=== PATIENT | male | born 1965 | race Caucasian/White ===

== ENCOUNTER 2016-05-09 09:06 | Day surgery (SDC) | payer OTHER ==
[2016-05-05 12:22] VITALS: BMI 25.5
[~2016-05-09 09:06] MED LIST: LACTATED RINGERS 1,000 ML IV SCH
[2016-05-09 09:26] VITALS: RESP 16; TEMP 97
[2016-05-09] MEDS ORDERED: PROPOFOL 10 MG/ML 20 ML VIAL IV ONE (09:38)
[2016-05-09] MEDS ORDERED: LIDOCAINE 1% INJ 10MG/ML (20 ML MDV) ONE (09:38)
--- NOTE | 2016-05-09 10:09 | P.PCN ---
Date of Procedure: 05/09/16 Procedure(s) Performed: Procedure: Total colonoscopy. Preoperative diagnosis: Screening for neoplasia. Postoperative diagnosis: Sigmoid diverticulosis with no evidence of acute diverticulitis, strictures, polyps or cancer. Preparation: HalfLytely prep. Sedation: Was provided by anesthesia. Brief clinical history: The patient is a 50-year-old male who is referred for this evaluation for screening for neoplasia age being his risk factor. He has no abdominal complaints, bleeding or anemia. No family history of colon cancer. This would be his first colonoscopy. The patient is on Prograf following his kidney transplant several years ago. Procedure: With the patient on her left lateral decubitus position and after informed consent and adequate sedation, the perianal area was inspected and it did not show any fissures or fistulas. There were no masses felt on digital rectal examination. The Olympus CFQ 160L video colonoscope was then inserted in the rectum in the usual fashion and advanced to the cecum. There were a few diverticular orifices seen scattered in the distal sigmoid but there was no evidence of acute diverticulitis or strictures. No polyps or tumors were seen. I retroflexed endoscope in the rectum before the endoscope was withdrawn. The patient tolerated the procedure well. Plan: The patient was reassured. Discussed dietary measures. He will follow up with you as planned and I recommended repeat exam in around 10 years.
[2016-05-09 10:21] VITALS: BP 132/87; PULSE 63
== END 2016-05-09 10:36 | disposition home or self-care (01) ==
LOC: ORWHC2ENDO 09:06
DX: Z12.11 Encounter for screening for malignant neoplasm of colon (principal); K57.30 Diverticulosis of large intestine without perforation or abscess without bleeding; K21.9 Gastro-esophageal reflux disease without esophagitis; I10 Essential (primary) hypertension; Z79.82 Long term (current) use of aspirin; Z79.899 Other long term (current) drug therapy
CPT/HCPCS: J2001; J2704; G0121; 99153

== ENCOUNTER → 2016-10-26 | Outpatient (CLI) | payer OTHER ==
[2016-10-26 07:32] LABS: Blood Urea Nitrogen 27 mg/dL (9-20); Non-African American GFR(MDRD) >60 (>60 ml/min/1.73 sqM)
--- NOTE | 2016-10-26 09:50 | CT ---
EXAMINATION TYPE: CT abdomen pelvis wo/w con DATE OF EXAM: 10/26/2016 COMPARISON: NONE HISTORY: 51-year-old male with history of prostate CA and Renal transplant TECHNIQUE: Contiguous axial scanning of the abdomen and pelvis before and after administration of 100 ml Visipaque 320 IV contrast followed by 50 mL saline flush. Delayed images through the kidneys and coronal/sagittal reconstructions performed. CT DLP: 1518 mGycm Automated exposure control for dose reduction was used. FINDINGS: The heart is normal size without pericardial effusion. Lung bases are clear without pleural effusion. Numerous scattered hypodense lesions within the liver measured 1.2 cm and smaller suggestive of cysts . Portal venous system is patent. 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 Bile duct mildly dilated at 7.6 mm. This may be chronic for the patient. No abnormal gallbladder distention. Adrenal glands, kidneys, and pancreas appear within normal limits with mild diffuse prominence of the main pancreatic duct. The lower [place] kidneys are entirely replaced by cysts of varying sizes. Largest is at the right lower dinesh e measuring 7.3 cm. In addition to these, there are hyperdense lesions measuring up to 3.5 cm at the right lower pole. These show no significant change in enhancement on the postcontrast or delayed kidn ey images. 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 No definite suspicious enhancing lesi on is seen. There is no excretion of contrast from the lower [place] kidneys. There are some scattered borderline-enlarged lower abdominal mesenteric lymph nodes measuring up to 9 mm. No retroperitoneal lymphadenopathy. No dilated small bowel, free fluid, or free air. Oral contrast has progressed to the distal transvers e colon. No pericolonic inflammatory change. Right lower quadrant transplant kidney is demonstrated and shows satisfactory uptake and excretion of contrast. There is no hydronephrosis. Bladder is urine distended. Prostate gland is enlarged measuring 6.3 cm wide and shows heterogeneous enhancement. No pelvic lymphadenopathy seen. On the delayed images the bladder, there is extensive heterogeneous density as is an irregular appear ance. This likely relates to admixture of contrast and urine but should be correlated clinically. On the normal postcontrast series, no clear intraluminal extension of any potential neoplasm is seen. Bones: Mild degenerative changes at the hips additional degenerative changes lower lumbar spine. No o sseous destructive process. IMPRESSION: 1. ENLARGED AND HETEROGENEOUSLY ENHANCING PROSTATE GLAND COMPATIBLE WITH PROVIDED HISTORY OF UNDERLYI NG PROSTATE CANCER. 2. NOTE THAT THE DELAYED IMAGES SHOW IRREGULAR HETEROGENEOUS DENSITY WITHIN THE BLADDER. THIS IS FAVO RED TO REPRESENT ADMIXTURE OF URINE AND EXCRETING CONTRAST NO EVIDENT SOFT TISSUE MASS IS SEEN WIT HIN THE BLADDER LUMEN ON THE EARLIER POSTCONTRAST SERIES. CLINICAL CORRELATION IS RECOMMENDED. 3. A FEW REGIONAL BORDERLINE ENLARGED LOWER ABDOMINAL MESENTERIC LYMPH NODES ARE PROBABLY REACTIVE/PO ST INFLAMMATORY MEASURING UP TO 9 MM. CONSIDER FOLLOW-UP. NO SUSPICIOUS PELVIC OR RETROPERITONEAL LYM PHADENOPATHY SEEN. 4. Functional right lower quadrant kidney transplant and findings compatible with ADPCKD. The lower [place] kidneys are entirely replaced by cysts some of which are hemorrhagic cysts.
== END | disposition home or self-care (01) ==
LOC: RADCTMAIN 06:52
PROVIDERS: ATTEND Surgery
DX: N32.89 Other specified disorders of bladder (principal); R93.8 Abnormal findings on diagnostic imaging of other specified body structures; C61 Malignant neoplasm of prostate; N28.1 Cyst of kidney, acquired; Z94.0 Kidney transplant status
CPT/HCPCS: 82565; 84520; 74178; 36415; Q9967